=== PATIENT | male | born 1995 | race Two or more races ===

== ENCOUNTER 2020-06-16 17:22 | Emergency (ER) | payer MEDICAID ==
[2020-06-16] MEDS ORDERED: Acetaminophen/oxyCODONE 325-5 MG Tab PO ONE (18:21)
[2020-06-16] MEDS ORDERED: Amoxicillin/Clavulanate K 875-125 MG Tab PO ONE (18:21)
--- NOTE | 2020-06-16 18:25 | EDM.PDOC ---
ED HPI GENERAL MEDICAL PROBLEM - General Chief Complaint: ENT Problem Stated Complaint: TOOTH PAIN Time Seen by Provider: 06/16/20 17:23 Source of Information: Reports: Patient History Limitations: Reports: No Limitations - History of Present Illness INITIAL COMMENTS - FREE TEXT/NARRATIVE: 25-year-old male no past medical history presents for right upper tooth pain x3 days. No associated fevers, difficulty breathing, cough, chest pain, difficulty swallowing, pain with swallowing. Patient notes that he has called around at a couple dentist office, and is looking for an appointment. He did not want things to get worse if he had an infection, prompting him to come to the emergency department for antibiotics. top right, dental Pain Score (Numeric/FACES): 7 - Related Data Allergies Allergy/AdvReac Type Severity Reaction Status Date / Time No Known Allergies Allergy Verified 06/16/20 17:36 Home Meds: Home Meds Amoxicillin/Potassium Clav [Augmentin 875-125 Tablet] 1 each PO BID 7 Days #14 tablet 06/16/20 [Rx] oxyCODONE HCl/Acetaminophen [Percocet 5-325 mg Tablet] 1 each PO Q4H PRN #18 tablet 06/16/20 [Rx] Past Medical History - Past Health History Medical/Surgical History: Denies Medical/Surgical History - Infectious Disease History Infectious Disease History: Reports: Chicken Pox - Past Surgical History GI Surgical History: Reports: Appendectomy Social & Family History - Family History Family Medical History: Noncontributory - Tobacco Use Tobacco Use Status *Q: Never Tobacco User - Recreational Drug Use Recreational Drug Use: No ED ROS GENERAL - Review of Systems Review Of Systems: Comprehensive ROS is negative, except as noted in HPI. ED EXAM, GENERAL - Physical Exam Exam: See Below Exam Limited By: No Limitations General Appearance: Alert Throat/Mouth: Normal Oropharynx, Normal Voice, No Airway Compromise, Other (poor dentition, erythema of right molar gums) Head: Atraumatic, Normocephalic Neck: Supple, Other (no swelling, no stridor) Respiratory/Chest: No Respiratory Distress, Lungs Clear, Normal Breath Sounds, No Accessory Muscle Use Cardiovascular: Normal Peripheral Pulses, Regular Rate, Rhythm Extremities: Normal Inspection Neurological: Alert Psychiatric: Normal Affect, Normal Mood Skin Exam: Warm, Dry, Intact, Normal Color Course - Vital Signs Last Recorded V/S: Last Vital Signs Temp 97.9 F 11/02/20 17:34 Pulse 104 H 06/16/20 17:34 Resp 16 06/16/20 17:34 BP 144/86 H 06/16/20 17:34 Pulse Ox 97 06/16/20 17:34 - Orders/Labs/Meds Orders: Active Orders 24 hr Category Date Time Status Acetaminophen/oxyCODONE [Percocet 325-5 MG] Med 06/16/20 18:21 Once 1 tab PO ONETIME ONE Amoxicillin/Clavulanate K [Augmentin 875 MG/125 MG] Med 06/16/20 18:21 Once 1 tab PO ONETIME ONE - Re-Assessments/Exams Free Text/Narrative Re-Assessment/Exam: 06/16/20 18:24 Will give Augmentin and Percocet one-time dose in emergency department. Will discharge with Augmentin and Percocet and recommend dental follow-up Departure - Departure Time of Disposition: 18:24 Disposition: Home, Self-Care 01 Condition: Good Clinical Impression: Dental infection - Discharge Information Prescriptions: Amoxicillin/Potassium Clav [Augmentin 875-125 Tablet] 1 each PO BID 7 Days #14 tablet oxyCODONE HCl/Acetaminophen [Percocet 5-325 mg Tablet] 1 each PO Q4H PRN #18 tablet PRN Reason: Pain Instructions: Dental Abscess, [id number] Referrals: PCP,None [Primary Care Provider] - Additional Instructions: The following information is given to patients seen in the emergency department who are being discharged to home. This information is to outline your options for follow-up care. We provide all patients seen in our emergency department with a follow-up referral. The need for follow-up, as well as the timing and circumstances, are variable depending upon the specifics of your emergency department visit. If you don't have a primary care physician on staff, we will provide you with a referral. We always advise you to contact your personal physician following an emergency department visit to inform them of the circumstance of the visit and for follow-up with them and/or the need for any referrals to a consulting specialist. The emergency department will also refer you to a specialist when appropriate. This referral assures that you have the opportunity for follow-up care with a specialist. All of these measure are taken in an effort to provide you with optimal care, which includes your follow-up. Under all circumstances we always encourage you to contact your private physician who remains a resource for coordinating your care. When calling for follow-up care, please make the office aware that this follow-up is from your recent emergency room visit. If for any reason you are refused follow-up, please contact the [facility] Emergency Department at and asked to speak to the emergency department charge nurse. Please follow up with your primary care physician. If you do not have a primary care physician, see below: [facility] [address] [place] [id number] My [facility] [address] [place] [address] Sepsis Event Note (ED) - Evaluation Sepsis Screening Result: No Definite Risk - Focused Exam Vital Signs: Vital Signs Temp Pulse Resp BP Pulse Ox 06/16/20 17:34 97.9 F 104 H 16 144/86 H 97 - My Orders Last 24 Hours: My Active Orders 06/16/20 18:21 Acetaminophen/oxyCODONE [Percocet 325-5 MG] 1 tab PO ONETIME ONE Amoxicillin/Clavulanate K [Augmentin 875 MG/125 MG] 1 tab PO ONETIME ONE - Assessment/Plan Last 24 Hours: My Active Orders 06/16/20 18:21 Acetaminophen/oxyCODONE [Percocet 325-5 MG] 1 tab PO ONETIME ONE Amoxicillin/Clavulanate K [Augmentin 875 MG/125 MG] 1 tab PO ONETIME ONE
== END 2020-06-16 18:42 | disposition home or self-care (01) ==
LOC: MW.ED 17:22
DX: K04.7 Periapical abscess without sinus (principal)
CPT/HCPCS: 99282; A9270

== ENCOUNTER 2021-10-03 00:23 | Observation (INO) | payer MEDICAID ==
[2021-10-03] MEDS ORDERED: Ketorolac 30 MG/ML SDV IVPUSH ONE (00:41)
[2021-10-03 01:15] LABS: BLOOD UREA NITROGEN,BUN 6 mg/dL (7.0-18.0); CARBON DIOXIDE,CO2 24.8 mmol/L (21.0-32.0); CHLORIDE,CL 100 mmol/L (98-107); GLUCOSE RANDOM 128 mg/dL (74-106); POTASSIUM,K 3.8 mmol/L (3.5-5.1); SODIUM,NA 136 mmol/L (136-148)
[2021-10-03] MEDS ORDERED: Iopamidol 755 MG/ML 500 ML Multipack Bottle IVPUSH ONE (01:35)
[2021-10-03] MEDS ORDERED: Heparin Sodium 5,000 Units/ML Vial IVPUSH ONE (02:59)
[2021-10-03] MEDS ORDERED: Heparin Sodium/0.45% NaCl 500 ML IV SCH ×2 (03:00→11:00)
[2021-10-03] MEDS ORDERED: Heparin Sodium/0.45% NaCl 500 ML IV STA ×3 (03:04→10:53)
[2021-10-03] MEDS ORDERED: Heparin Sodium/0.45% NaCl 500 ML ONE (03:04)
[2021-10-03] MEDS: Acetaminophen 325 MG Tab PO PRN ×2 (17:07→22:53)
[2021-10-03] MEDS: Apixaban 5 MG Tab PO SCH (20:45)
[2021-10-04] MEDS: Morphine 2 MG/ML SYRINGE IVPUSH PRN ×3 (02:59→14:39)
[2021-10-04] MEDS: Acetaminophen 325 MG Tab PO PRN (06:19)
[2021-10-04 06:54] LABS: BLOOD UREA NITROGEN,BUN 6 mg/dL (7.0-18.0); CARBON DIOXIDE,CO2 23.7 mmol/L (21.0-32.0); CHLORIDE,CL 99 mmol/L (98-107); GLUCOSE RANDOM 95 mg/dL (74-106); POTASSIUM,K 4.5 mmol/L (3.5-5.1); SODIUM,NA 134 mmol/L (136-148)
[2021-10-04] MEDS: Apixaban 5 MG Tab PO SCH ×2 (08:25→20:28)
[2021-10-04] MEDS: oxyCODONE 5 MG Tab PO PRN ×2 (18:43→23:54)
[2021-10-05] MEDS: oxyCODONE 5 MG Tab PO PRN ×4 (05:42→21:10)
[2021-10-05 06:40] LABS: BLOOD UREA NITROGEN,BUN 6 mg/dL (7.0-18.0); CARBON DIOXIDE,CO2 24.6 mmol/L (21.0-32.0); CHLORIDE,CL 94 mmol/L (98-107); GLUCOSE RANDOM 92 mg/dL (74-106); POTASSIUM,K 4.1 mmol/L (3.5-5.1); SODIUM,NA 133 mmol/L (136-148)
[2021-10-05] MEDS: Apixaban 5 MG Tab PO SCH ×2 (09:38→20:54)
[2021-10-05] MEDS: Acetaminophen 325 MG Tab PO PRN (09:41)
[2021-10-05] MEDS ORDERED: Lactated Ringers 1,000 ML IV ONE (20:00)
[2021-10-05] MEDS ORDERED: Lactated Ringers 1,000 ML IV SCH (23:15)
[2021-10-06] MEDS: oxyCODONE 5 MG Tab PO PRN ×3 (02:31→11:09)
[2021-10-06] MEDS: Apixaban 5 MG Tab PO SCH (09:26)
== END 2021-10-06 13:00 | disposition home or self-care (01) ==
LOC: MW.ED 00:23 → MW.MS 02:59
PROVIDERS: ADMIT Internal Medicine; ATTEND Internal Medicine
DX: I26.99 Other pulmonary embolism without acute cor pulmonale (principal); U07.1 COVID-19; J90 Pleural effusion, not elsewhere classified; Z90.49 Acquired absence of other specified parts of digestive tract
CPT/HCPCS: 36415; 71275; 80048; 80053; 84484; 85025; 85610; 85730; 93005; 96365; 96375; 96376; 99285; A9270; G0378; J1644; J1885; J2270; J7120; Q9967; 93010; 99282

== ENCOUNTER 2023-08-13 10:27 | Emergency (ER) | payer MEDICAID ==
[2023-08-13] MEDS ORDERED: Lidocaine 2% 5 ML SDV INJECT ONE (10:49)
== END 2023-08-13 11:30 | disposition home or self-care (01) ==
LOC: MW.ED 10:27
DX: S61.512A Laceration without foreign body of left wrist, initial encounter (principal); Z90.49 Acquired absence of other specified parts of digestive tract; W26.8XXA Contact with other sharp object(s), not elsewhere classified, initial encounter
CPT/HCPCS: 12002; 99282; J3490

== ENCOUNTER 2023-08-22 09:53 | Emergency (ER) | payer MEDICAID | END 2023-08-22 10:28 | disposition left against medical advice (07) | LOC: MW.ED 09:53 | DX: Z48.02 Encounter for removal of sutures (principal) | CPT/HCPCS: 99281 ==

== ENCOUNTER 2024-05-04 18:35 | Emergency (ER) | payer SELFPAY ==
[2024-05-04] MEDS: tiZANidine 4 MG Tab PO ONE (19:59)
[2024-05-04] MEDS: Dexamethasone 4 MG Tab PO ONE (19:59)
[2024-05-04] MEDS: Acetaminophen 500 MG Tab PO ONE (20:00)
[2024-05-04] MEDS: Ketorolac 30 MG/ML SDV IM ONE (20:03)
[2024-05-04] MEDS: Lidocaine 4% 1 each Patch TOP ONE (20:07)
== END 2024-05-04 20:53 | disposition home or self-care (01) ==
LOC: MW.ED 18:35
DX: S39.012A Strain of muscle, fascia and tendon of lower back, initial encounter (principal); Z86.16 Personal history of COVID-19; Z79.899 Other long term (current) drug therapy; Z90.49 Acquired absence of other specified parts of digestive tract; Z75.8 Other problems related to medical facilities and other health care; X50.0XXA Overexertion from strenuous movement or load, initial encounter
CPT/HCPCS: 96372; 99283; A9270; J1885; J8540